=== PATIENT | female | born 1980 | race Caucasian/White ===

== ENCOUNTER 2020-04-27 13:05 | Observation (INO) | payer OTHER ==
[~2020-04-27] VITALS: Ht 157.5 cm; Wt 84.8 kg
== END 2020-04-27 14:25 | disposition home or self-care (01) ==
LOC: SPU 13:05
PROVIDERS: ADMIT Specialist; ATTEND Specialist
DX: O26.893 Other specified pregnancy related conditions, third trimester (principal); R10.9 Unspecified abdominal pain; Z3A.28 28 weeks gestation of pregnancy
CPT/HCPCS: G0378

== ENCOUNTER 2020-07-01 10:44 | Inpatient (IN) | payer OTHER, SELFPAY ==
[~2020-07-01] VITALS: Ht 157.5 cm; Wt 84.8 kg
[2020-07-01] MEDS ORDERED: TERBUTALINE SULFATE 1 MG/ML VIAL SUBCUT ONE (12:00)
[2020-07-01] MEDS ORDERED: LR 1,000 ML IV SCH (12:00)
[2020-07-01] MEDS ORDERED: OXYTOCIN/0.9 % SODIUM CHLORIDE 1,000 ML IV SCH ×2 (12:00→19:30)
[2020-07-01] MEDS ORDERED: LR 1,000 ML IV ONE (12:00)
[2020-07-01 12:19] LABS: BASOPHILS % (AUTO) 0.4 % (0.0-2.0); EOSINOPHILS % (AUTO) 0.1 % (0.0-4.0); HEMATOCRIT 37.6 % (36-48); HEMOGLOBIN 12.8 g/dL (12.0-16.0); LYMPHOCYTES # (AUTO) 1.6 K/uL (1.0-5.5); LYMPHOCYTES % (AUTO) 16.7 % (20.5-51.5); MEAN CORPUSCULAR HEMOGLOBIN 32 pg (27-31); MEAN CORPUSCULAR HGB CONC 34 % (32-36); MEAN CORPUSCULAR VOLUME 93 fL (79.0-98.0); MONOCYTES # (AUTO) 0.4 K/uL (0.0-1.0); MONOCYTES % (AUTO) 4.4 % (1.7-9.3); NEUTROPHILS # (AUTO) 7.4 K/uL (1.8-7.7); NEUTROPHILS % (AUTO) 78.4 % (40.0-70.0); PLATELET COUNT (AUTO) 246 K/uL (130-430); RED BLOOD CELL COUNT(AUTO) 4.04 MIL/uL (4.2-6.2); RED CELL DISTRIBUTION WIDTH 14.7 % (9.0-15.0); WHITE BLOOD COUNT (AUTO) 9.5 K/uL (4.8-10.8)
[2020-07-01] MEDS ORDERED: fentaNYL CITRATE/PF 100 MCG/2 ML AMP ONE (13:14)
[2020-07-01] MEDS ORDERED: ROPIVACAINE HCL/PF 0.2% 200 ML ONE (13:15)
[2020-07-01] MEDS ORDERED: HYDROcodone/ACETAMIN 5-325 MG TAB (NORCO/ VICODIN) PO PRN (19:30)
[2020-07-01] MEDS ORDERED: DOCUSATE SODIUM 100 MG CAPSULE PO PRN (19:30)
[2020-07-01] MEDS ORDERED: DERMOPLAST SPRAY TP PRN (19:30)
[2020-07-01] MEDS ORDERED: NALOXONE HCL 0.4 MG/ML AMP (NARCAN) IVP PRN (19:30)
[2020-07-01] MEDS ORDERED: OXYCODONE/ACETAMINOPHEN 5-325 TABLET PO PRN ×2 (19:30)
[2020-07-01] MEDS ORDERED: OXYTOCIN/0.9 % SODIUM CHLORIDE 1,000 ML IV ONE (19:30)
[2020-07-01] MEDS ORDERED: HYDROCORTISONE 0.5%, 28.35 GM TOPICAL CREAM TP PRN (19:30)
[2020-07-01] MEDS ORDERED: METHYLERGONOVINE MALEATE 0.2 MG TABLET PO PRN (19:30)
[2020-07-01] MEDS ORDERED: WITCH HAZEL LEAF 1 MED.PAD MED.PAD TP PRN (19:30)
[2020-07-01] MEDS ORDERED: LANOLIN 7 GM OINT. TP PRN (19:30)
[2020-07-01] MEDS ORDERED: MEASLES,MUMPS&RUBELLA VACC/PF 12500 UNIT/0.5 ML VIAL SUBQ PRN (19:30)
[2020-07-01] MEDS ORDERED: DIPH-TET-PERTUS Vaccine 0.5 ML VIAL (ADACEL) I.M. PRN (19:30)
[2020-07-01] MEDS ORDERED: SENNOSIDES/DOCUSATE SODIUM 1 TAB TABLET(SENOKOT-S) PO PRN (19:30)
[2020-07-01] MEDS ORDERED: ANUSOL 1 EA SUPP.RECT (PREPARATION H) RC PRN (19:30)
[2020-07-01] MEDS ORDERED: TEMAZEPAM 15 MG CAPSULE PO PRN (21:00)
[2020-07-02] MEDS: IBUPROFEN 600 MG TABLET PO SCH ×2 (00:11→05:03)
[2020-07-02 17:17] VITALS: BP_SYST 113
== END 2020-07-02 20:15 | disposition home or self-care (01) | DRG 807 ==
LOC: SPU 10:44
PROVIDERS: ADMIT Specialist; ATTEND Specialist
PROC: 10D07Z6 Extraction of Products of Conception, Vacuum, Via Natural or Artificial Opening (ICD-10-PCS; principal; 2020-07-01)
PROC: 3E0R3BZ Introduction of Anesthetic Agent into Spinal Canal, Percutaneous Approach (ICD-10-PCS; 2020-07-01)
PROC: 00HU33Z Insertion of Infusion Device into Spinal Canal, Percutaneous Approach (ICD-10-PCS; 2020-07-01)
DX: O41.03X0 Oligohydramnios, third trimester, not applicable or unspecified (principal); Z37.0 Single live birth; Z20.828 Contact with and (suspected) exposure to other viral communicable diseases; Z3A.37 37 weeks gestation of pregnancy
CPT/HCPCS: 36415; 85025; 86592; 86780; 86886; 86900; 86901; J2590; J3010; J7120

== ENCOUNTER 2020-08-12 08:39 | Day surgery (SDC) | payer OTHER, SELFPAY ==
[~2020-08-12] VITALS: Ht 157.5 cm; Wt 78.0 kg
[~2020-08-12 08:39] MED LIST: ONDANSETRON HCL 4 MG/2 ML VIAL IVP PRN; fentaNYL CITRATE/PF 100 MCG/2 ML AMP IVP PRN
[2020-08-12] MEDS ORDERED: fentaNYL CITRATE/PF 100 MCG/2 ML AMP ONE ×2 (11:45→12:40)
[2020-08-12] MEDS ORDERED: METOCLOPRAMIDE HCL 10 MG/2 ML VIAL ONE (11:45)
[2020-08-12] MEDS ORDERED: NS 50 ML BAG IV ONE (11:45)
[2020-08-12] MEDS ORDERED: ONDANSETRON HCL 4 MG/2 ML VIAL ONE ×3 (11:45→18:54)
[2020-08-12] MEDS ORDERED: LIDOCAINE 1% 10 MG/ML, 20 ML MDV ONE (11:45)
[2020-08-12] MEDS ORDERED: CEFAZOLIN 2 GM IVPB PREMIX 50 ML IV ONE ×2 (11:45→12:40)
[2020-08-12] MEDS ORDERED: HEPARIN SODIUM,PORCINE 5,000 UNITS/ML VIAL ONE (11:45)
[2020-08-12] MEDS ORDERED: PROPOFOL 200MG/ 20ML VIAL (DIPRIVAN) IV ONE ×2 (11:45→12:40)
[2020-08-12] MEDS ORDERED: SEVOFLURANE 15 MIN GAS INH ONE ×2 (11:45→12:40)
[2020-08-12] MEDS ORDERED: ePHEDrine sulfate 50 MG/ML VIAL ONE (11:45)
[2020-08-12] MEDS ORDERED: HYDROcodone/ACETAMIN 5-325 MG TAB (NORCO/ VICODIN) PO PRN (12:30)
[2020-08-12] MEDS ORDERED: ONDANSETRON HCL 4 MG/2 ML VIAL IVP PRN (12:30)
[2020-08-12] MEDS ORDERED: OXYCODONE/ACETAMINOPHEN 5-325 TABLET PO PRN ×2 (12:30)
[2020-08-12] MEDS ORDERED: GLYCOPYRROLATE 0.2 MG/ML VIAL ONE ×2 (12:38→12:40)
[2020-08-12] MEDS ORDERED: NS 1000 ML IV.SOLN IV ONE (12:40)
[2020-08-12] MEDS ORDERED: LR 1,000 ML IV.SOLN IV ONE (12:40)
[2020-08-12] MEDS ORDERED: BUPIVACAINE /PF 0.25% 30 ML VIAL INJ ONE (12:40)
[2020-08-12] MEDS ORDERED: MIDAZOLAM HCL 5 MG/ML VIAL (VERSED) IV ONE (12:40)
[2020-08-12] MEDS ORDERED: NEOSTIGMINE METHYLSULFATE 1 MG/ML, 10 ML VIAL ONE (12:40)
[2020-08-12] MEDS ORDERED: NS IRRIG SOLN 1000 ML IR ONE (12:40)
[2020-08-12 13:40] VITALS: BP_SYST 127
[2020-08-12] MEDS ORDERED: OXYCODONE/ACETAMINOPHEN 5-325 TABLET ONE (13:51)
[2020-08-12] MEDS ORDERED: ONDANSETRON HCL 4 MG/2 ML VIAL IVP ONE (19:00)
== END 2020-08-12 19:20 | disposition home or self-care (01) ==
LOC: SDS 08:39 → SMU 08:41 → SDS 19:20
PROVIDERS: ATTEND Specialist
DX: Z30.2 Encounter for sterilization (principal); Z64.1 Problems related to multiparity; Z20.828 Contact with and (suspected) exposure to other viral communicable diseases
CPT/HCPCS: 58661; 88302; J3490 ×2; J0690; J1644; J2001; J2765; J2250; J2710; J2405; J2704; J3010; J7120; J7030; C1727; U0003